=== PATIENT | female | born 1990 | race Caucasian/White ===

== ENCOUNTER 2016-12-07 10:00 | Inpatient (IN) | payer MEDICAID ==
[~2016-12-07] VITALS: Ht 162.6 cm; Wt 65.8 kg
--- NOTE | ~2016-12-07 | DS ---
Unit #: [id number] #: [id number] Patient: CORA HARTMAN [id number] [facility] [address] [place] [address] [id number] I MR#: [id number] NAME: CORA HARTMAN ROOM: [facility] Age: 26 Sex: F Admission Date: 12/07/2016 : 1990 Discharge Date: 12/11/2016 Attending Physician: Yaniv Moser M.D. Primary Care Physician: Primary Care Physician No DISCHARGE SUMMARY REASON FOR ADMISSION Depression. DIAGNOSTIC STUDIES LABORATORY DATA: Urine drugs screen positive for cocaine and benzodiazepine. HOSPITAL COURSE The patient was admitted to inpatient unit on December 07, 2016, and discharged on 12/11/2016. The patient was treated on the inpatient unit with group therapy, individual therapy, expressive therapy, medication management, structured milieu. The patient was responsive to treatment. The patient also attended chemical dependency group. The patient was subsequently discharged with a plan to follow up in outpatient program. DISCHARGE MEDICATIONS 1. Celexa 20 mg daily for depression. 2. Trazodone 100 mg at bedtime for sleep. 3. Vistaril 50 mg 3 times a day for anxiety. DISCHARGE DIAGNOSES PSYCHIATRIC: Major depressive disorder, recurrent, severe, F33.2. Anxiety disorder not otherwise specified, F40.01 Sedative hypnotic use disorder, severe, F13.20 Cocaine use disorder, severe, F14.20 SECONDARY: Deferred. MEDICAL: None. STRESSORS: Psychosocial stressor. FOLLOWUP CARE The patient to follow up in outpatient clinic as per social work lecturer. CONDITION AT DISCHARGE The patient pleasant, cooperative. Denied any psychotic symptoms or any suicidal ideation. PROGNOSIS Guarded. DIET AND ACTIVITY As tolerated. Unit #: [id number] #: [id number] Patient: CORA HARTMAN Dictated by... Yaniv Moser M.D. SZC/bzg TD: 12/12/2016 08:46 JOB #: [id number] DISCHARGE SUMMARY Page 1 of 1 X Yaniv Moser MD X DISCHARGE SUMMARY
--- NOTE | ~2016-12-07 | PN ---
Unit #: [id number] #: [id number] Patient: CORA HARTMAN [id number] [facility] [address] [place] [address] [id number] MR#: [id number] NAME: CORA HARTMAN ROOM: P202 Age: 26 Sex: F Admission Date: 12/07/2016 : 1990 Attending Physician: Yaniv Moser M.D. Admitting Physician: Yaniv Moser M.D. Primary Care Physician: Primary Care Physician Lynette LERMA PROGRESS NOTES DATE 12/10/2016 DISCUSSION Ms. Peguero is a 26-year-old female, seen on 12/10/2016. The patient interviewed, chart reviewed, and obtained information from the nursing staff. The patient was compliant and cooperative. Mood sad and dysphoric, flat affect, and guarded. The patient reports trouble falling asleep and staying asleep, still having suicidal ideation. REVIEW OF SYSTEMS Complete review of systems unremarkable. MENTAL STATUS EXAMINATION General appearance: Patient dressed casually. Attention span and concentration, fair. Oriented in place and person. Mood and affect, labile. Speech, monotone. Thought process, concrete. The patient denied any thoughts of harming others but suicidal ideation, withdrawn, isolative. Recent and remote memory, poor. Insight and judgment, poor. DIAGNOSIS Mood disorder, NOS. ASSESSMENT/PLAN Advised to continue with the current medication and therapeutic protocol, with a plan to increase trazodone to 100 mg at bedtime, if needed further adjustment of medication. Dictated by... Eugene Graham/richie TD: 12/11/2016 06:18 JOB #: [id number] Unit #: [id number] #: [id number] Patient: CORA HARTMAN [facility] PROGRESS NOTES Page 1 of 1 X Yaniv Moser MD PROGRESS NOTE
--- NOTE | ~2016-12-07 | PN ---
Unit #: [id number] #: [id number] Patient: CORA HARTMAN [id number] [facility] [address] [place] [address] [id number] I MR#: [id number] NAME: CORA HARTMAN ROOM: P202 Age: 26 Sex: F Admission Date: 12/07/2016 : 1990 Attending Physician: Yaniv Moser M.D. Admitting Physician: Yaniv Moser M.D. Primary Care Physician: Primary Care Physician Lynette [facility] PROGRESS NOTES DATE OF SERVICE 12/08/2016 DISCUSSION Ms. Peguero is a 26-year-old female seen on 12/08/2016. Patient interviewed, chart reviewed. Obtained information from nursing staff. Patient was compliant and cooperative. Mood sad, dysphoric. Patient reported still having suicidal ideation, patient's labs pending. Complete review of systems unremarkable. MENTAL STATUS EXAMINATION General appearance, patient dressed casually. Attention span and concentration fair. Oriented to time, place and person. Mood and affect sad, depressed. Speech monotone. Thought process concrete. Patient reported suicidal ideation, recent suicide attempt. Denied any hallucination. Recent and remote memory poor. Insight and judgement poor. DIAGNOSES Major depressive disorder recurrent severe. ASSESSMENT/PLAN Advise to continue with current medication and therapeutic protocol. If needed consider further adjustment of medication. Plan to start patient on Celexa 20 mg at bedtime for depression, Desyrel 50 mg at bedtime for sleep and Vistaril 25 mg three times a day for anxiety. Dictated by... Eugene Graham/jose alberto TD: 12/09/2016 21:44 JOB #: [id number] Unit #: [id number] #: [id number] Patient: CORA HARTMAN [facility] PROGRESS NOTES Page 1 of 1 X Yaniv Moser MD PROGRESS NOTE
--- NOTE | ~2016-12-07 | PA ---
Unit #: [id number] #: [id number] Patient: CORA HARTMAN [id number] [facility] [address] [place] [address] [id number] I MR#: [id number] NAME: CORA HARTMAN ROOM: P202 Age: 26 Sex: F Admission Date: 12/07/2016 : 1990 Date of Assessment: 12/08/2016 Attending Physician: Yaniv Moser M.D. Admitting Physician: Yaniv Moser M.D. Primary Care Physician: Primary Care Physician No PSYCHIATRIC ASSESSMENT INFORMANTS The patient reliability, fair informant and chart reliability, good. CHIEF COMPLAINT Depression. HISTORY OF PRESENT ILLNESS Ms. Sheela Hartman is a 26-year-old female, presented with the above-mentioned complaint. The patient presented at [facility] due to suicide attempt. The patient reports that she was having really bad day yesterday. The patient's mother and friend made her come to the hospital. The patient reported that she is currently stressed out due to custody fight over the kids. The patient stated that her family wanted to ensure the patient was in stress free place to help her think clearly. The patient stated that yesterday she took sleeping pills, 30 to 35 pills, trying to kill herself. The patient reported that she was on phone with a friend, feeling sad and depressed, feeling of hopelessness and worthlessness, and suicidal ideation. Needing inpatient admission at this time for psychiatric stabilization. PAST PSYCHIATRIC HISTORY Remarkable for history of previous suicide attempt in 12/2016, inpatient treatment at [facility]. FAMILY HISTORY AND SOCIAL HISTORY The patient has a good support system from family. No history of abuse. Family history is remarkable for history of depression and bipolar disorder in the family and extended family. The patient denied any legal charges. MEDICAL HISTORY Unremarkable for any chronic medical condition. Musculoskeletal; muscle strength and tone, no atrophy or abnormal movement. Gait normal. MEDICATION HISTORY None. ALLERGIES No known drug allergies. SUBSTANCE ABUSE HISTORY The patient reported tobacco use, age of onset 19; alcohol, age of onset 20; marijuana, age of onset 19; crack cocaine, 25; amphetamine, age of Unit #: [id number] #: [id number] Patient: CORA HARTMAN onset 21, benzodiazepine, age of onset 21; and synthetic drug, age of onset 20. The patient reported history of IV drug abuse, withdrawal symptom, muscle cramping, depressed mood, headache, irritability, and nervousness. REVIEW OF SYSTEMS HEENT: Eyes, clear. Ears, nose, mouth, and throat; clear. CARDIOVASCULAR: Unremarkable. RESPIRATORY: Unremarkable. GI: Unremarkable. : Unremarkable. SKIN: Unremarkable. LYMPH NODE: Unremarkable. NEUROLOGIC: Unremarkable. ENDOCRINE: Unremarkable. HEMATOLOGIC: Unremarkable. ALLERGIC/IMMUNOLOGIC: Unremarkable. MUSCULOSKELETAL: Muscle strength and tone, no atrophy or abnormal movement. Gait normal. MENTAL STATUS EXAMINATION CONSTITUTIONAL: Measurement of vital signs; temperature 98.4, heart rate 88, respiratory rate 16, and blood pressure 101/66. Height 5 feet 4 inches and weight 145 pounds. GENERAL APPEARANCE: The patient dressed casually. The patient did not show any facial deformity. MUSCULOSKELETAL: Please see above. PSYCHIATRIC EXAMINATION Description of speech; regular rate, normal volume, normal articulation, and coherent. Description of thought process, goal directed. Description of association, intact. Description of abnormal psychotic thinking; the patient denied any hallucination or delusions, but mood lability, depression, suicidal ideation, and recent suicide attempt. Description of the patient's judgment: Concerning everyday activity, poor. Social situation, poor. Concerning psychiatric condition, poor. Complete mental status examination; oriented in time, place, and person. Recent and remote memory, fair. Attention span and concentration, fair. Language, able to name object and repeat phrases. Fund of knowledge, aware of current event and passive vocabulary intact. Mood and affect, sad and dysphoric. Insight and judgment, fair to poor. ASSETS AND LIABILITIES Assets, the patient is articulate and able to take care of her ADL. Liability, history of depression and suicide attempt. ADMITTING DIAGNOSES Psychiatric: Major depressive disorder, recurrent, severe, F33.2 and anxiety disorder, not otherwise specified, F40.01. Secondary diagnosis: Deferred. Medical diagnosis: None. Stressors: Psychosocial stressors. PSYCHIATRIC PLAN AND TREATMENT GOAL AND DISCHARGE PLAN Unit #: [id number] #: [id number] Patient: CORA HARTMAN 1. Advised to admit the patient on the inpatient unit. Provide safe, supportive, and structured environment. 2. Ordered labs; CBC, CMP, UA, UDS, and test. 3. Precaution for self-harm, SP1 precaution, and VTS monitoring. 4. The patient to attend all the programing, group therapy, individual therapy, chemical dependency group, and plan to consider medication for depression. Treatment goal to attain euthymic mood, gain insight into her problem, and learn coping skills. DISCHARGE PLAN Plan to stabilize the patient and consider followup in outpatient program. ESTIMATED LENGTH OF STAY 3 to 5 days. Dictated by... Eugene Graham/thanh TD: 12/08/2016 19:48 JOB #: [id number] PSYCHIATRIC ASSESSMENT Page 1 of 1 X Yaniv Moser MD X PSYCHIATRIC ASSESSMENT
--- NOTE | ~2016-12-07 | HP ---
Unit #: [id number] #: [id number] Patient: CORA HARTMAN [id number] [facility] [address] [place] [address] [id number] I MR#: [id number] NAME: CORA HARTMAN ROOM: [facility] Age: 26 Sex: F Admission Date: 12/07/2016 : 1990 Attending Physician: Yaniv Moser M.D. Admitting Physician: Yaniv Moser M.D. Primary Care Physician: Primary Care Physician No HISTORY AND PHYSICAL HISTORY OF PRESENT ILLNESS Cora is a 26 year old, admitted to [address] [place] [address] with depression after an alleged suicide attempt with an overdose of "sleeping pills." She was treated in the emergency room at [facility] and when medically [facility] PAST MEDICAL HISTORY Long history of illicit substance abuse to include marijuana, cocaine, amphetamines, and benzodiazepines. PAST SURGICAL HISTORY Nothing reported. ALLERGIES Sulfa. SOCIAL HISTORY Smokes one half pack per day, drinks alcohol on a daily basis, admits to long history of illicit substance abuse. FAMILY HISTORY Medically noncontributory. REVIEW OF SYSTEMS CONSTITUTIONAL: No fever or chills. HEENT: Denies any sore throat, ear pain or runny nose. CARDIOVASCULAR: Denies chest pain, irregular heart rhythm or palpitations. CHEST: Denies shortness of breath or cough. No hemoptysis. GASTROINTESTINAL: Denies nausea, vomiting, diarrhea or chronic constipation. ENDOCRINE: Denies history of increased thirst or urination. No recent significant weight loss or gain. GENITOURINARY: Denies dysuria, frequency, or hematuria. SKIN: Denies any rashes. HEMATOLOGIC: Denies history of increased bleeding or bruising. MUSCULOSKELETAL: Denies any hot, swollen joints. No generalized muscle pain. NEUROLOGIC: Denies problems with vision or speech. No frequent, severe headaches. No numbness, tingling or weakness in any extremities. Denies loss of bladder or bowel control. CURRENT MEDICATIONS 1. Detox protocol Unit #: [id number] #: [id number] Patient: CORA HARTMAN 2. Celexa 20 mg daily PHYSICAL EXAMINATION GENERAL: Alert, well-nourished, no apparent distress. VITAL SIGNS: Blood pressure 110/68, heart rate 80, respirations 16, and temperature 98.6. WEIGHT: 145 pounds. HEIGHT: 5 feet 4 inches. SKIN: Warm and dry without rash or lesion. HEENT: Normocephalic. TMs not viewed. Oral and nasal passages clear. Conjunctivae clear. PERRLA. EOMs intact. NECK: Supple without lymphadenopathy or thyromegaly. HEART: Regular rate and rhythm without murmur. LUNGS: Clear. ABDOMEN: Soft, nontender. : Not done. EXTREMITIES: No evidence of cyanosis, clubbing or edema. Moves all without focal deficit. NEUROLOGICAL: Grossly within normal limits. Cranial Nerves: II: Visual villasenor are intact. III, IV AND : Extraocular movements are intact. Pupils are equal, round and reactive to light. V: Facial sensation is grossly normal. VII: Facial movements and expression are normal. VIII: Auditory acuity grossly intact. IX, X: Uvula is midline. Phonation is normal. XI: Patient shrugs shoulders and turns head normally. XII: Tongue protrudes in the midline. Sensory and Motor Function: Sensory and motor sensation is grossly normal. Motor: moves all extremities well. Coordination: Gait is normal. Deep Tendon Reflexes: Intact. IMPRESSION Psychiatric admission. RECOMMENDATIONS Psychiatric, per psychiatrist. MEDICAL I see no contraindications to participating in facility's activities. MEDICAL PROGNOSIS Good. MEDICAL CONDITION Stable. Dictated by... Zuleika Street P.A.-C. for Eugene Baltazar/richie TD: 12/08/2016 13:24 JOB #: [id number] Unit #: [id number] #: [id number] Patient: CORA HARTMAN HISTORY AND PHYSICAL Page 1 of [address] HISTORY AND PHYSICAL
--- NOTE | ~2016-12-07 | PN ---
Unit #: [id number] #: [id number] Patient: CORA HARTMAN [id number] [facility] [address] [place] [address] [id number] I MR#: [id number] NAME: CORA HARTMAN ROOM: P202 Age: 26 Sex: F Admission Date: 12/07/2016 : 1990 Attending Physician: Yaniv Moser M.D. Admitting Physician: Yaniv Moser M.D. Primary Care Physician: Primary Care Physician Lynette LERMA PROGRESS NOTES DATE OF SERVICE 12/09/2016 DISCUSSION Cora Hartman is a 26-year-old female seen on 12/09/2016. The patient continues to report feeling sad, depressed, withdrawn, isolative, flat affect. Sad, depressed. Passive SI. The patient tolerating medication fairly well. No side effects from medication. Complete Review of Systems: Unremarkable. MENTAL STATUS EXAMINATION General Appearance: The patient dressed casually. Attention span, concentration: Fair. Oriented in place and person. Mood and affect labile. Speech: Monotone. Thought process: [place]. The patient having passive SI. Recent and remote memory: Poor. Insight and judgment: Poor. DIAGNOSIS Major depressive disorder, recurrent, severe. ASSESSMENT/PLAN Advised to continue with current medication and therapeutic protocol. If needed, consider further adjustment of medication. Dictated by... Eugene Graham/liya TD: 12/10/2016 11:52 JOB #: [id number] Unit #: [id number] #: [id number] Patient: CORA HARTMAN [facility] PROGRESS NOTES Page 1 of 1 X Yaniv Moser MD PROGRESS NOTE
[2016-12-09 09:48] LABS: URINE APPEARANCE CLEAR; URINE BILIRUBIN NEG (NEG); URINE BLOOD 1+ (NEG); URINE COLOR DK YELLOW; URINE GLUCOSE NEG (NEG); URINE KETONE NEG (NEG); URINE LEUKOCYTE ESTERASE 1+ (NEG); URINE NITRATE NEG (NEG); URINE PH 6.5 (5-8); URINE PROTEIN NEG (NEG); URINE SPECIFIC GRAVITY 1.019 (1.003-1.035); URINE UROBILINOGEN 0.2 MG/DL (NEG)
[2016-12-09 09:50] LABS: U HYALINE CASTS AUWI 0-2 /[LPF]; URINE BACTERIA AUWI NEG (NEGATIVE); URINE SQUAMOUS EPITHELIAL CELL FEW /[HPF]
[2016-12-09 11:40] LABS: AMPHETAMINE NEG (NEG); BARBITURATES NEG (NEG); BENZODIAZEPINES POS (NEG); COCAINE POS (NEG); MARIJUANA NEG (NEG); OPIATES NEG (NEG); TRICYCLIC ANTIDEPRESSANTS NEG (NEG); U METHADONE NEG (NEG)
== END 2016-12-11 15:10 | disposition home or self-care (01) | DRG 885 ==
LOC: P2S 14:54
PROVIDERS: Psychiatry & Neurology Psychiatry
PROC: HZ2ZZZZ Detoxification Services for Substance Abuse Treatment (ICD-10-PCS; principal; 2016-12-08)
DX: F33.2 Major depressive disorder, recurrent severe without psychotic features (principal); F13.20 Sedative, hypnotic or anxiolytic dependence, uncomplicated; F14.20 Cocaine dependence, uncomplicated; F41.9 Anxiety disorder, unspecified
CPT/HCPCS: 80307; 81003; 84703; 86592